=== PATIENT | female | born 1985 | race Hispanic/Latino ===

== ENCOUNTER 2016-11-27 10:10 | Day surgery (SDC) | payer MEDICAID ==
--- NOTE | 2016-11-27 10:51 | Anesthesia Consultation ---
Anesthesia Consult and Med Hx Date of service: 11/27/16 - Airway Anesthetic Teeth Evaluation: Edentulous ROM Head & Neck: Adequate Mental/Hyoid Distance: Adequate Mallampati Class: Class I Intubation Access Assessment: Good - Pulmonary Exam CTA: Yes - Cardiac Exam Cardiac Exam: RRR - Pre-Operative Health Status ASA Pre-Surgery Classification: ASA3 Proposed Anesthetic Plan: General - Pulmonary Hx Smoking: Yes (1 PPD X 15 YRS) Hx Asthma: Yes Hx Sleep Apnea: No (NALDO PRE SCREEN LOW RISK) - Cardiovascular System Hx Hypertension: Yes (X 2 YRS) - Central Nervous System Hx Back Pain: Yes (DJD, chronic pain management) - Gastrointestinal Hx Gastroesophageal Reflux Disease: Yes - Endocrine Hx Renal Disease: No Hx Insulin Dependent Diabetes: No - Hematic Hx Anemia: No Hx Sickle Cell Disease: No - Other Systems Hx Alcohol Use: No Hx Substance Use: No Hx Cancer: No Hx Obesity: No
--- NOTE | 2016-11-27 10:51 | Anesthesia Day of Surgery ---
Anesthesia Day of Surgery - Day of Surgery Patient Examined: Yes Patient H&P Reviewed: Yes Patient is NPO: Yes
[2016-11-27] MEDS ORDERED: LACTATED RINGERS 1,000 ML IV SCH (11:00)
[2016-11-27] MEDS ORDERED: ZOFRAN IV NR (11:00)
[2016-11-27] MEDS ORDERED: TRANSDERM-SCOP TD NR (11:00)
[2016-11-27] MEDS ORDERED: VERSED IV NR (11:00)
[2016-11-27] MEDS ORDERED: PEPCID PO NR (11:00)
[2016-11-27] MEDS ORDERED: NACL BACTERIOSTATIC INFILTRATI ONE (11:13)
[2016-11-27] MEDS ORDERED: DECADRON ONE (11:30)
[2016-11-27] MEDS ORDERED: ZOFRAN ONE (11:30)
[2016-11-27] MEDS ORDERED: XYLOCAINE MPF 2% ONE (12:57)
[2016-11-27] MEDS ORDERED: DILAUDID ONE (12:57)
[2016-11-27] MEDS ORDERED: DIPRIVAN 10 MG/ML IV ONE (12:57)
[2016-11-27] MEDS ORDERED: ANCEF/STERILE WATER 2 GM/20 ML IV NR (13:00)
[2016-11-27] MEDS ORDERED: PERCOCET 5/325 PO PRN (13:08)
[2016-11-27] MEDS ORDERED: WATER FOR IRRIG STERILE IR ONE (13:29)
--- NOTE | 2016-11-27 13:51 | Short Stay Summary ---
Short Stay Documentation Date of service: 11/27/16 - History H&P: obtained from office - Allergies and Medications Current Medications: Allergies fentanyl Allergy (Verified 11/22/16 12:21) Vomiting morphine Allergy (Verified 11/22/16 12:21) Unknown Home Medications Medication Instructions Recorded Confirmed Last Taken Type HYDROcodone/APAP 5-325 [[place] 1 each PO Q6HR PRN 11/22/16 11/27/16 11/25/16 History 5/325] Lisinopril [Zestril] 30 mg PO QDAY 11/22/16 11/27/16 11/27/16 08:30 History Doxycycline [Vibramycin] 100 mg PO DAILY 11/27/16 11/27/16 11/25/16 History Duloxetine HCl 40 mg PO DAILY 11/27/16 11/27/16 11/24/16 History Promethazine [Phenergan TAB] 25 mg PO Q6HR PRN 11/27/16 11/27/16 1 Week Ago History Active Medications Cefazolin Sodium (Ancef/Sterile Water 2 Gm/20 Ml) 2 gm IV PREOP NR Stop: 11/27/16 23:59 Famotidine (Pepcid) 20 mg PO PREOP NR Stop: 11/27/16 21:00 Last Admin: 11/27/16 11:14 Dose: 20 mg Hydromorphone HCl (Dilaudid) 0.5 mg IV Q10MIN PRN PRN Reason: Pain , Severe (7-10) Stop: 11/30/16 13:09 Lactated Ringer's (Lactated Ringers) 1,000 mls @ 100 mls/hr IV DIRECT BASIL Last Admin: 11/27/16 11:20 Dose: 100 mls/hr Midazolam HCl (Versed) 2 mg IV PREOP NR Stop: 11/27/16 21:00 Last Admin: 11/27/16 11:32 Dose: 2 mg Ondansetron HCl (Zofran) 4 mg IV PREOP NR Stop: 11/27/16 18:00 Last Admin: 11/27/16 11:24 Dose: 4 mg Scopolamine (Transderm-Scop) 1 each TD PREOP NR Stop: 11/27/16 18:00 Last Admin: 11/27/16 11:15 Dose: 1 each - Brief post op/procedure progress note Date of procedure: 11/27/16 Pre-op diagnosis: recurrent uti Post-op diagnosis: same Procedure: cysto, urethral dilation, rpg, hydrodistention Anesthesia: KOFI Surgeon: ROCHELLE GARCIA Estimated blood loss: none Pathology: none Condition: stable - Hospital course Hospital course: cipro, ultram, norco on chart reduce irritants (caffeine,alcohol, spicy foods) hydrate 32-64 oz water a day shower, no baths - Disposition Condition at discharge: Stable Disposition: DC-01 TO HOME OR SELFCARE Short Stay Discharge Plan Follow up with: AKANKSHA THOMPSON MD [Primary Care Provider] - 7 Days
[2016-11-27] MEDS: DILAUDID IV PRN ×4 (14:00→14:40)
--- NOTE | 2016-11-27 14:18 | Post Anesthesia Evaluation ---
- Post Anesthesia Evaluation Patient Participated: Yes Airway Patent: Yes Stable Respiratory Function: Yes Temp > 96.8F: Yes Pain Manageable: Yes Adequeate Hydration: Yes Anesthesia Complications: No
--- NOTE | 2016-11-27 14:38 | Fluoroscopy Report ---
RETROGRADE PYELOGRAM: History: Recurrent UTI. There is adequate filling of the ureters and intrarenal collecting systems with no filling defects or anatomic abnormalities identified. Impression: No abnormality identified.
[2016-11-27 18:24] VITALS: BP 143/87
--- NOTE | 2016-11-27 20:07 | Operative Report ---
PREOPERATIVE DIAGNOSIS: Recurrent urinary tract infection. POSTOPERATIVE DIAGNOSES: Recurrent urinary tract infection. PROCEDURE: Cystoscopy, bilateral retrograde pyelograms, hydrodistention, urethral dilatation. SURGEON: River Cheney MD ANESTHESIA: General. ESTIMATED BLOOD LOSS: Minimal. FLUIDS: Crystalloid. COMPLICATIONS: No complications. INDICATIONS: This patient is a 31-year-old female seen in the office for recurrent urinary tract infections. She has been seen by Dr. Rothman in our group and recently was transferred to ma. She was also seen by Infectious Disease for recurrent infections, which has been managed by Dr. Paul Mejía. Recent E. coli infection 11/15/2016 was diagnosed. She was treated with Macrobid. CT of abdomen and pelvis, no obstruction. A 1 mm incidental stone was noted on the right kidney. Essure inserts in the fallopian tubes were noted. She presents now for intervention. DESCRIPTION OF PROCEDURE: The patient was taken to the operative suite, placed in a supine position. After adequate general anesthesia, placed in a dorsal lithotomy position, prepped and draped in a sterile fashion. Pancystourethroscopy was performed with 22 [place] Storz cystoscope with no stones or tumors noted. She had some pseudomembranous trigonitis. Bilateral retrograde pyelograms were obtained with an 8 [place] Spencer catheter and 8 mL of contrast. No filling defects or obstruction were noted. Urethral dilatation to 30 [place] was performed, hydrodistention was performed with the bladder capacity of 600 mL. The patient tolerated the procedure well. She was extubated and taken to recovery room in stable condition. She will go home on Cipro, [place] and Ultram. I will encourage her to reduce caffeine, hydrate with at least 32 to 64 ounces of water a day, refrained from baths and should shower to try to reduce risk of infection or colonization. JOB# [id number] [facility]
== END 2016-11-27 15:30 | disposition home or self-care (01) ==
LOC: OR 10:10
PROVIDERS: ATTEND Urology
DX: N93.0 Postcoital and contact bleeding (principal); F17.210 Nicotine dependence, cigarettes, uncomplicated; J45.909 Unspecified asthma, uncomplicated; I10 Essential (primary) hypertension; K21.9 Gastro-esophageal reflux disease without esophagitis; Z88.6 Allergy status to analgesic agent; Z88.1 Allergy status to other antibiotic agents
CPT/HCPCS: 52260; 74420; 81025; A4217; C1758; J0690; J1100; J1170; J2250; J2405; J2704; J7120; Q9967

== ENCOUNTER 2017-01-22 22:15 | Emergency (ER) | payer MEDICAID ==
[2017-01-22 23:18] LABS: Basophils % (Auto) 0.6 % (0.0-1.8); Eosinophils % (Auto) 0.4 % (0.0-4.3); Hematocrit 41.6 % (30.3-42.9); Hemoglobin 13.7 gm/dl (10.1-14.3); Mean Corpuscular HGB Conc 33 % (30-34); Mean Corpuscular Hemoglobin 31 pg (28-32); Mean Corpuscular Volume 95 fl (79-97); Platelet Count 273 K/mm3 (140-440); Red Blood Count 4.38 M/mm3 (3.65-5.03); Red Cell Distribution Width 13.7 % (13.2-15.2); White Blood Count 11.8 K/mm3 (4.5-11.0)
[2017-01-22 23:31] LABS: Anion Gap 21 mmol/L; BUN/Creatinine Ratio 18; Blood Urea Nitrogen 9 mg/dL (7-17); Calcium 9.5 mg/dL (8.4-10.2); Carbon Dioxide 22 mmol/L (22-30); Glucose 77 mg/dL (65-100); Potassium 4.5 mmol/L (3.6-5.0); Sodium 139 mmol/L (137-145)
[2017-01-22] MEDS ORDERED: TYLENOL ONE (23:36)
[2017-01-22 23:37] VITALS: BP 123/84
[2017-01-23] MEDS ORDERED: TYLENOL PO ONE (01:05)
== END 2017-01-23 10:00 | disposition left against medical advice (07) ==
LOC: ED 22:15
DX: Z53.21 Procedure and treatment not carried out due to patient leaving prior to being seen by health care provider (principal)
CPT/HCPCS: 36415; 80048; 84484; 85025; 85379; 93005; 93010